=== PATIENT | female | born 1990 | race Caucasian/White ===

== ENCOUNTER → 2019-07-20 10:15 | Outpatient (CLI) | payer BC, OTHER, MEDICAID, SELFPAY ==
[2019-07-20 11:11] LABS: Add Manual Diff / Slide Review NO; Basophils Absolute Auto 0 /uL (0-100); Basophils Percent Auto 0.5 % (0-2); Eosinophils Absolute Auto 100 /uL (0-450); Eosinophils Percent Auto 1.3 % (2-4); Hematocrit 42.1 % (36-46); Hemoglobin 14.2 g/dL (12.0-16.0); Lymphocytes Absolute Auto 2300 /uL (1100-4500); Mean Corpuscular HGB Conc 33.8 % (30-36); Mean Corpuscular Hemoglobin 29.4 PG (26-34); Mean Corpuscular Volume 86.9 fL (80-100); Monocytes Absolute Auto 600 /uL (0-900); Neutrophils Absolute Auto 4400 /uL (1500-7000); Neutrophils Percent Auto 59.2 % (50-75); Platelet Count 284 X10^3/uL (150-400); Red Blood Cell Count 4.84 X10^6/uL (4.0-5.2); Red Cell Distribution Width 13.2 % (11.6-14.8); White Blood Cell Count 7.5 X10^3/uL (4.5-11.0)
[2019-07-20 11:23] LABS: Alanine Aminotransferase 17 IU/L (<35); Alkaline Phosphatase 77 U/L (38-126); Aspartate Aminotransferase 28 IU/L (14-36); BUN Creatinine Ratio 25.6 (6-22); Bilirubin Total 0.2 mg/dL (0.2-1.3); Blood Urea Nitrogen 21 mg/dL (7-17); Calcium 9.5 mg/dL (8.4-10.2); Carbon Dioxide 18 mmol/L (22-32); Chloride 111 mmol/L (98-107); Estimated Glomerular Filt Rate > 60.0 mL/min (>60); Globulin 3.9 g/dL (1.7-4.1); Glucose 73 mg/dL (70-100); HEMOLYSIS < 15 (0-50); Potassium 4.1 mmol/L (3.4-5.1); Sodium 138 mmol/L (137-145); Total Protein 7.9 g/dL (6.3-8.2)
[2019-07-20 12:10] LABS: Luteinizing Hormone < 0.22 mIU/mL
[2019-07-20 12:25] LABS: Thyroid Stimulating Hormone 2.09 uIU/mL (0.47-4.68)
[2019-07-20 12:27] LABS: Follicle Stimulating Hormone < 0.66 mIU/mL
[2019-07-23 05:12] LABS: Topiramate 4.6 ug/mL (2.0-25.0)
== END ==
PROVIDERS: PCP Family Medicine; Referring Provider Family Medicine; Visit Provider Family Medicine
DX: G40.309 Generalized idiopathic epilepsy and epileptic syndromes, not intractable, without status epilepticus (principal); R53.83 Other fatigue
CPT/HCPCS: 36415; 80053; 80201; 82533; 83001; 83002; 84443; 85025; 88230; 88262; 88289

== ENCOUNTER → 2019-09-10 09:22 | Outpatient (CLI) | payer BC, OTHER, MEDICAID, SELFPAY ==
[2019-09-10 10:57] LABS: Alanine Aminotransferase 18 IU/L (<35); Albumin 4.2 g/dL (3.5-5.0); Albumin Globulin Ratio 1.2 (1.0-2.8); Alkaline Phosphatase 62 U/L (38-126); Amylase 141 U/L (30-110); Aspartate Aminotransferase 36 IU/L (14-36); BUN Creatinine Ratio 26.3 (6-22); Bilirubin Total 0.2 mg/dL (0.2-1.3); Blood Urea Nitrogen 20 mg/dL (7-17); Calcium 9.6 mg/dL (8.4-10.2); Carbon Dioxide 21 mmol/L (22-32); Chloride 109 mmol/L (98-107); Estimated Glomerular Filt Rate > 60.0 mL/min (>60); Globulin 3.6 g/dL (1.7-4.1); Glucose 83 mg/dL (70-100); HEMOLYSIS 22 (0-50); Lipase 220 U/L (23-300); Potassium 4.3 mmol/L (3.4-5.1); Sodium 137 mmol/L (137-145); Total Protein 7.8 g/dL (6.3-8.2)
[2019-09-22 16:35] LABS: C10 0.07 umol/L (0.00-0.38); C10:1 0.04 umol/L (0.01-0.32); C10:2 0.01 umol/L (0.00-0.05); C12 0.02 umol/L (0.00-0.15); C14 0.02 umol/L (0.00-0.06); C14:1 0.02 umol/L (0.00-0.17); C14:2 0.01 umol/L (0.00-0.11); C16 0.06 umol/L (0.03-0.13); C16:1 0.01 umol/L (0.00-0.04); C18 0.02 umol/L (0.00-0.07); C18:1 0.05 umol/L (0.04-0.17); C18:2 0.02 umol/L (0.00-0.11); C2 3.87 umol/L (3.23-10.29); C3 0.54 umol/L (0.16-0.62); C3-DICARBOXYLIC 0.03 umol/L (0.02-0.12); C4 0.26 umol/L (0.08-0.32); C5 0.12 umol/L (0.01-0.21); C5 Hydroxy 0.04 umol/L (0.00-0.06); C5- Dicarboxylic 0.04 umol/L (0.00-0.10); C5:1 0.01 umol/L (0.00-0.02); C6 0.02 umol/L (0.00-0.10); C8 0.05 umol/L (0.00-0.27)
== END ==
PROVIDERS: PCP Family Medicine; Referring Provider Family Medicine; Visit Provider Family Medicine
DX: R19.4 Change in bowel habit (principal); G40.309 Generalized idiopathic epilepsy and epileptic syndromes, not intractable, without status epilepticus
CPT/HCPCS: 36415; 80053; 82017; 82139; 82150; 83690; 83919

== ENCOUNTER → 2019-11-10 08:14 | Outpatient (CLI) | payer OTHER, MEDICAID, SELFPAY ==
--- NOTE | 2019-11-10 | DI.US.S_ITS ---
PROCEDURE: US ABDOMEN COMPLETE INDICATIONS: CHANGE IN BOWEL HABIT TECHNIQUE: Real-time scanning was performed of the abdominal and retroperitoneal organs, with image documentation. COMPARISON: None. FINDINGS: Evaluation is limited, secondary to the patient's inability to fully cooperate with the examination. Liver: Liver is normal in size. Within the right lobe of the liver, there is an echogenic lesion seen that measures 2.7 x 1.9 x 2.2 cm. Gallbladder: The gallbladder is overall not well seen. No findings of gallstones or sludge are seen. The gallbladder wall is not thickened, measuring 3 mm or less. No specific pericholecystic fluid is seen. The sonographic Jackson sign is negative. Biliary ducts: Intrahepatic bile ducts are non-dilated. Extrahepatic bile duct caliber measures 4 mm. Normal is 6-7 mm or less in diameter, or 10 mm or less post-cholecystectomy. Pancreas: Visualized portions of the pancreas are sonographically normal. Spleen: Spleen is normal in size and homogeneous in echotexture. Kidneys: Kidneys are normal in size and echotexture. Right kidney measures 11.4 cm long; left kidney measures 11 cm long. No hydronephrosis or nephrolithiasis. No solid masses. Aorta: Visualized aorta is normal in caliber at less than 3 cm. Iliacs: Not seen, obscured by overlying bowel gas. IVC: Intrahepatic inferior vena cava is patent. Miscellaneous: No free abdominal fluid. IMPRESSION: Limited study demonstrating no imaging explanation for the patient's presenting symptoms. Likely 2.7 cm liver hemangioma. Attention should be paid to this area on any future followup studies. If there is strong clinical concern for a clinically relevant liver mass, then please consider a liver protocol MRI (without and with contrast) for further evaluation (assuming that there is no contraindication). Dictated by: Karlos Carr M.D. on 11/10/2019 at 8:20 Approved by: Karlos Carr M.D. on 11/10/2019 at 8:22
== END ==
PROVIDERS: PCP Family Medicine; Referring Provider Family Medicine; Visit Provider Family Medicine
DX: R19.4 Change in bowel habit (principal); K76.9 Liver disease, unspecified
CPT/HCPCS: 76700

== ENCOUNTER → 2020-01-05 07:31 | Outpatient (CLI) | payer OTHER, MEDICAID, SELFPAY ==
[2020-01-05 08:39] LABS: Alanine Aminotransferase 38 IU/L (<35); Albumin Globulin Ratio 1.2 (1.0-2.8); Alkaline Phosphatase 75 U/L (38-126); Amylase 72 U/L (30-110); Aspartate Aminotransferase 51 IU/L (14-36); BUN Creatinine Ratio 21.7 (6-22); Bilirubin Total 0.3 mg/dL (0.2-1.3); Blood Urea Nitrogen 18 mg/dL (7-17); Calcium 9.3 mg/dL (8.4-10.2); Carbon Dioxide 22 mmol/L (22-32); Chloride 107 mmol/L (98-107); Estimated Glomerular Filt Rate > 60.0 mL/min (>60); Globulin 3.4 g/dL (1.7-4.1); Glucose 79 mg/dL (70-100); HEMOLYSIS < 15 (0-50); Lipase 166 U/L (23-300); Potassium 4.1 mmol/L (3.4-5.1); Sodium 136 mmol/L (137-145); Total Protein 7.4 g/dL (6.3-8.2)
[2020-01-10 12:39] LABS: Topiramate 10.8 ug/mL (2.0-25.0)
[2020-01-26 06:41] LABS: Methodology LC-MS/MS
== END ==
PROVIDERS: PCP Family Medicine; Referring Provider Family Medicine; Visit Provider Family Medicine
DX: D18.00 Hemangioma unspecified site (principal); R53.83 Other fatigue; Q04.5 Megalencephaly; F89 Unspecified disorder of psychological development
CPT/HCPCS: 36415; 80053; 80201; 82139; 82150; 83690

== ENCOUNTER → 2020-01-26 07:39 | Outpatient (CLI) | payer OTHER, MEDICAID, SELFPAY ==
--- NOTE | 2020-01-26 | DI.US.S_ITS ---
PROCEDURE: US PERIPH VENOUS LOW EXTREM LT INDICATIONS: CALF SWELLING TECHNIQUE: Real-time imaging, as well as color and pulse Doppler interrogation, were performed of the left lower extremity deep veins from the inguinal ligament to the popliteal fossa. COMPARISON: None. FINDINGS: The common femoral, femoral and popliteal veins are normally compressible, and free of intraluminal thrombus. Color and pulse Doppler demonstrate normal phasic intraluminal flow. There is normal augmentation response to distal compression maneuver. IMPRESSION: No evidence of deep vein thrombosis involving the left lower extremity. Dictated by: Isis Johnson MD, PhD on 01/26/2020 at 9:05 Approved by: Isis Johnson MD, PhD on 01/26/2020 at 9:05
== END ==
PROVIDERS: PCP Family Medicine; Referring Provider Family Medicine; Visit Provider Family Medicine
DX: R22.42 Localized swelling, mass and lump, left lower limb (principal)
CPT/HCPCS: 93971

== ENCOUNTER → 2020-07-24 07:12 | Outpatient (CLI) | payer OTHER, MEDICAID, SELFPAY ==
--- NOTE | 2020-07-24 | DI.US.S_ITS ---
PROCEDURE: US ABDOMEN COMPLETE INDICATIONS: RE-EVALUATE HEMANGIOMA TECHNIQUE: Real-time scanning was performed of the abdominal and retroperitoneal organs, with image documentation. COMPARISON: [facility], US, US ABDOMEN COMPLETE, 11/10/2019, 8:40. FINDINGS: Liver: Liver is normal in size. An echogenic focus is again seen within the anterior right lobe of the liver measuring 2.2 x 1.9 x 1.5 cm. Previously, this measured 2.7 x 1.9 x 2.2 cm. Gallbladder: No findings of gallstones or sludge are seen. The gallbladder wall is not thickened, measuring 3 mm or less. No specific pericholecystic fluid is seen. The sonographic Jackson sign is negative. Biliary ducts: Intrahepatic bile ducts are non-dilated. Extrahepatic bile duct caliber measures 5 mm. Normal is 6-7 mm or less in diameter, or 10 mm or less post-cholecystectomy. Pancreas: Visualized portions of the pancreas are sonographically normal. Spleen: Spleen is normal in size and homogeneous in echotexture. Kidneys: Kidneys are normal in size and echotexture. Right kidney measures 11.5 cm long; left kidney measures 12.7 cm long. No hydronephrosis or nephrolithiasis. No solid masses. The renal cortex measures within normal limits for thickness. Aorta: Visualized aorta is normal in caliber at less than 3 cm. Iliacs: Proximal common iliac arteries are normal in caliber at less than 2.5 cm. IVC: Intrahepatic inferior vena cava is patent. Miscellaneous: No free abdominal fluid. IMPRESSION: There is again seen a presumed liver hemangioma, which is not increased in size compared to the prior. Dictated by: Karlos Carr M.D. on 07/24/2020 at 9:40 Approved by: Karlos Carr M.D. on 07/24/2020 at 9:41
[2020-07-24 08:53] LABS: Alanine Aminotransferase 18 IU/L (<35); Albumin 3.7 g/dL (3.5-5.0); Albumin Globulin Ratio 1.1 (1.0-2.8); Alkaline Phosphatase 65 U/L (38-126); Aspartate Aminotransferase 28 IU/L (14-36); BUN Creatinine Ratio 24.3 (6-22); Bilirubin Total 0.2 mg/dL (0.2-1.3); Blood Urea Nitrogen 18 mg/dL (7-17); Calcium 9.1 mg/dL (8.4-10.2); Carbon Dioxide 21 mmol/L (22-32); Chloride 110 mmol/L (98-107); Cholesterol 170 mg/dL (140-199); Estimated Glomerular Filt Rate > 60.0 mL/min (>60); Globulin 3.3 g/dL (1.7-4.1); Glucose 86 mg/dL (70-100); HDL Cholesterol 43 mg/dL (40-60); HEMOLYSIS < 15 (0-50); LDL Cholesterol Calculated 103 mg/dL (<100); Potassium 3.8 mmol/L (3.4-5.1); Sodium 138 mmol/L (137-145); Triglycerides 121 mg/dL (35-150)
[2020-07-24 09:02] LABS: Add Manual Diff / Slide Review NO; Basophils Absolute Auto 0 /uL (0-100); Basophils Percent Auto 0.3 % (0-2); Eosinophils Absolute Auto 100 /uL (0-450); Eosinophils Percent Auto 1.1 % (2-4); Hematocrit 41.6 % (36-46); Hemoglobin 13.5 g/dL (12.0-16.0); Lymphocytes Absolute Auto 2400 /uL (1100-4500); Lymphocytes Percent Auto 32.7 % (25-40); Mean Corpuscular HGB Conc 32.5 % (30-36); Mean Corpuscular Hemoglobin 28.7 PG (26-34); Mean Corpuscular Volume 88.3 fL (80-100); Monocytes Absolute Auto 500 /uL (0-900); Monocytes Percent Auto 6.7 % (3-14); Neutrophils Absolute Auto 4400 /uL (1500-7000); Neutrophils Percent Auto 59.2 % (50-75); Platelet Count 240 X10^3/uL (150-400); Red Blood Cell Count 4.71 X10^6/uL (4.0-5.2); Red Cell Distribution Width 13.5 % (11.6-14.8); White Blood Cell Count 7.4 X10^3/uL (4.5-11.0)
== END ==
PROVIDERS: PCP Student in an Organized Health Care Education/Training Program; Referring Provider Student in an Organized Health Care Education/Training Program; Visit Provider Student in an Organized Health Care Education/Training Program
DX: D18.00 Hemangioma unspecified site (principal)
CPT/HCPCS: 36415; 76700; 80053; 80061; 85025

== ENCOUNTER → 2020-07-28 08:39 | Outpatient (CLI) | payer OTHER, MEDICAID, SELFPAY ==
[2020-07-28] MEDS: COVID-19 VACC #1, MRNA(MOD) 100 MCG/0.5 ML VIAL IM (08:53)
== END ==
PROVIDERS: PCP Student in an Organized Health Care Education/Training Program; Visit Provider Internal Medicine
DX: Z23 Encounter for immunization (principal)
CPT/HCPCS: 0011A; 91301

== ENCOUNTER → 2020-08-25 09:10 | Outpatient (CLI) | payer OTHER, MEDICAID, SELFPAY ==
[2020-08-25] MEDS: COVID-19 VACC #2, MRNA(MOD) 100 MCG/0.5 ML VIAL IM (09:19)
== END ==
PROVIDERS: PCP Student in an Organized Health Care Education/Training Program; Visit Provider Internal Medicine
DX: Z23 Encounter for immunization (principal)
CPT/HCPCS: 0012A; 91301

== ENCOUNTER → 2021-02-19 07:53 | Outpatient (CLI) | payer OTHER, MEDICAID, SELFPAY ==
[2021-02-19 10:48] LABS: Alanine Aminotransferase 16 IU/L (<35); Albumin Globulin Ratio 1.3 (1.0-2.8); Alkaline Phosphatase 63 U/L (38-126); Aspartate Aminotransferase 28 IU/L (14-36); Bilirubin Total 0.2 mg/dL (0.2-1.3); Bilirubin Unconjugated 0.1 mg/dL (0.0-1.1); HEMOLYSIS < 15 (0-50)
[2021-02-20 02:34] LABS: Alpha Fetoprotein 1.1 ng/mL (0.0-8.3)
== END ==
PROVIDERS: PCP Student in an Organized Health Care Education/Training Program; Referring Provider Internal Medicine Gastroenterology; Visit Provider Internal Medicine Gastroenterology
DX: R19.5 Other fecal abnormalities (principal); D18.03 Hemangioma of intra-abdominal structures
CPT/HCPCS: 36415; 80076; 82105

== ENCOUNTER → 2021-05-02 09:01 | Outpatient (CLI) | payer OTHER, MEDICAID, SELFPAY ==
[2021-05-02 10:08] LABS: Add Manual Diff / Slide Review NO; Basophils Absolute Auto 100 /uL (0-100); Basophils Percent Auto 0.8 % (0-2); Eosinophils Absolute Auto 0 /uL (0-450); Eosinophils Percent Auto 0.5 % (2-4); Hematocrit 40.3 % (36-46); Hemoglobin 13.6 g/dL (12.0-16.0); Lymphocytes Absolute Auto 1800 /uL (1100-4500); Lymphocytes Percent Auto 24.3 % (25-40); Mean Corpuscular HGB Conc 33.7 % (30-36); Mean Corpuscular Hemoglobin 29.1 PG (26-34); Mean Corpuscular Volume 86.5 fL (80-100); Monocytes Absolute Auto 400 /uL (0-900); Monocytes Percent Auto 4.9 % (3-14); Neutrophils Absolute Auto 5000 /uL (1500-7000); Neutrophils Percent Auto 69.5 % (50-75); Platelet Count 254 X10^3/uL (150-400); Red Blood Cell Count 4.65 X10^6/uL (4.0-5.2); White Blood Cell Count 7.2 X10^3/uL (4.5-11.0)
[2021-05-02 11:33] LABS: TSH w/ Reflex to FT4 1.98 uIU/mL (0.47-4.68)
[2021-05-02 11:54] LABS: Vitamin B12 457 pg/mL (239-931)
[2021-05-02 13:23] LABS: Free T4, Direct Thyroxine 0.85 ng/dL (0.78-2.19)
[2021-05-04 12:05] LABS: Lamotrigine Lamictal 2.6 ug/mL (2.0-20.0)
== END ==
PROVIDERS: PCP Student in an Organized Health Care Education/Training Program; Referring Provider Psychiatry & Neurology Neurology; Visit Provider Psychiatry & Neurology Neurology
DX: G40.309 Generalized idiopathic epilepsy and epileptic syndromes, not intractable, without status epilepticus (principal); Z79.899 Other long term (current) drug therapy
CPT/HCPCS: 36415; 80175; 82607; 84439; 84443; 85025

== ENCOUNTER 2021-09-24 14:06 | Emergency (ER) | payer OTHER, MEDICAID, SELFPAY ==
[2021-09-24 14:33] VITALS: PULSE 114; RESP 22; O2SAT 99
--- NOTE | 2021-09-24 16:58 | DI.RAD.S_ITS ---
PROCEDURE: XR KNEE LT 1TO2V INDICATIONS: leg pain TECHNIQUE: Two views of the knee were acquired. COMPARISON: None. FINDINGS: Bones: No fractures or dislocations. No suspicious bony lesions. Soft tissues: No joint effusion. No suspicious soft tissue calcifications. IMPRESSION: Normal left knee Dictated by: Carlos Bassett M.D. on 09/24/2021 at 17:32 Approved by: Carlos Bassett M.D. on 09/24/2021 at 17:33
--- NOTE | 2021-09-24 16:58 | DI.RAD.S_ITS ---
PROCEDURE: XR HIP W PEL IF DONE LT 2V INDICATIONS: leg pain TECHNIQUE: AP pelvis with lateral view(s) of the left hip(s). COMPARISON: None. FINDINGS: Bones: No fractures or dislocations. Pelvic ring appears intact. No suspicious bony lesions. Soft tissues: The visualized bowel gas pattern is normal. No suspicious soft tissue calcifications. IMPRESSION: Normal pelvis and left hip Dictated by: Carlos Bassett M.D. on 09/24/2021 at 17:31 Approved by: Carlos Bassett M.D. on 09/24/2021 at 17:32
--- NOTE | 2021-09-24 16:58 | DI.RAD.S_ITS ---
PROCEDURE: XR ANKLE LT MIN 3V INDICATIONS: leg pain TECHNIQUE: 3 views of the ankle were acquired. COMPARISON: None. FINDINGS: Bones: No fractures or dislocations. Ankle mortise is normally aligned. No suspicious bony lesions. Soft tissues: No tibiotalar joint effusion. Achilles tendon appears normal. IMPRESSION: Normal left ankle Dictated by: Carlos Bassett M.D. on 09/24/2021 at 17:28 Approved by: Carlos Bassett M.D. on 09/24/2021 at 17:30
--- NOTE | 2021-09-24 17:00 | ED_ITS ---
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 Patient is normally minimally verbal she is usually quite active and ambulates regularly and mom noted today that she seems to be moving l ess, she seems like she either does not want to or is having difficulty getting up out of a chair and when she ambulates her left leg seems almost weak or shaking. She states that it has been sort of intermittent throughout the day and she has even been walking and ambulating at times although not as quickly at other times normally. No fevers or chills. Patient has not expressed pain clearly to her. She has not had any vomiting. No difficulty with breathing, cough, cold or congestion. She has had normal bowel movements and urination with no dysuria. She sometimes uses the toilet but wears pull-ups also. Mom has not noticed any new swelling or skin changes. She has chronic swelling in her left leg and has had US of her leg several years ago which was negative when it started. Patient is on medication for seizure disorder including Topamax and lamotrigine, fluovaxamine. She takes lorazepam twice daily. She has not had similar issues like this in the past. No recent falls or injuries that she is aware. Related Data Home Medications Medication Instructions Recorded Confirmed aripiprazole 2 mg tablet 2 mg PO DAILY 09/24/21 09/24/21 fluvoxamine 25 mg tablet 50 mg PO BID 09/24/21 09/24/21 lorazepam 1 mg tablet 0.5 mg PO BID 09/24/21 09/24/21 norgestrel 0.3 mg-ethinyl 1 tab PO DAILY 09/24/21 09/24/21 estradiol 30 mcg tablet (Susana (28)) topiramate 50 mg tablet 50 mg PO BID 09/24/21 09/24/21 Previous Rx's Medication Instructions Recorded apixaban 5 mg tablet (Eliquis) 5 mg PO BID #90 tab 09/24/21 Allergies Allergy/AdvReac Type Severity Reaction Status Date / Time Sulfa (Sulfonamide Allergy Verified 09/24/21 18:58 Antibiotics) Review of Systems <Sindhu Ochoa DO - Last Filed: 09/25/21 11:26> Review of Systems ROS Unobtainable: Unobtainable due to mental condition Exam <Sindhu Ochoa DO - Last Filed: 09/25/21 11:26> Narrative Exam Narrative: GEN: well nourished, well appearing female, alert and oriented to baseline, patient appears to be in mild distress. Patient interact verbally but minimally with myself. HEENT: Atraumatic, pupils are equal round reactive to light, extraocular movements are intact, nares are clear, moist mucous membranes. HEART: Regular rate and rhythm without murmur, clicks, rubs. Pulses are equal in upper and lower extremities LUNGS:Lungs clear to auscultation, no wheezes, rales, crackles, chest moves symmetrically ABD:bowel sounds normal, soft, non-tender, no guarding, rebound, rigidity, no masses noted, no hepatosplenomegaly, negative pelvic rock. :No CVA tenderness BACK: No cervical, thoracic or lumbar vertebral point tenderness. Patient has normal range of motion passively. Patient will attempt to stand but appears to be uncomfortable when she puts weight on the left leg. Muscle strength is in lower extremities, patient is able of lift both both legs independently when I evaluate her feet. Dorsalis pedis and tibialis pulses are 2+ and lower extremities. Sensation is intact in the lower extremities. MSCL: Non-tender to palpation of leg, no bony tenderness, fully visualized with no skin changes, no muscle atrophy, patient has no pain with passive range of motion, she does not follow commands to evaluate range of motion. NEURO:CN 2-12 intact, sensation normal SKIN: Patient has some mild hyper pigmentation on buttocks and legs which mom states is consistent with her history of genetic mosaicism. Initial Vital Signs Initial Vital Signs: Vital Signs Pulse Rate 114 H 09/24/21 14:33 Respiratory Rate 22 09/24/21 14:33 Pulse Oximetry 99 09/24/21 14:33 <Lia Mauro MD - Last Filed: 09/25/21 06:17> Initial Vital Signs Initial Vital Signs: Vital Signs Pulse Rate 114 H 09/24/21 14:33 Respiratory Rate 22 09/24/21 14:33 Pulse Oximetry 99 09/24/21 14:33 Course <Sindhu Ochoa DO - Last Filed: 09/25/21 11:26> Orders Ordered: Discontinued Medications Acetaminophen (Acetaminophen 325 Mg Tablet) 650 mg PO NOW ONE Stop: 09/24/21 16:59 Last Admin: 09/24/21 17:11 Dose: 650 mg Documented by: ELHAM Apixaban (Apixaban 5 Mg Tablet) 5 mg PO NOW ONE Stop: 09/24/21 20:07 Last Admin: 09/24/21 20:18 Dose: 5 mg Documented by: LUIS Reevaluation(s) Reevaluation #1: Repeat evaluation. Patient's x-ray imaging was negative. Unable to reproduce her discomfort on examination 2nd time and with straight leg raise. Mom discussed that there was concern about DVT in the past, she has a chronically swollen left leg so DVT ultrasound was ordered. Offered to do additional testing with labs or further imaging but mother defers at this time. Time: 17:59 Vital Signs Vital signs: Vital Signs - 8 hr 09/24/21 14:33 Pulse Rate 114 H Respiratory Rate 22 Pulse Oximetry 99 <Lia Mauro MD - Last Filed: 09/25/21 06:17> Orders Ordered: Discontinued Medications Acetaminophen (Acetaminophen 325 Mg Tablet) 650 mg PO NOW ONE Stop: 09/24/21 16:59 Last Admin: 09/24/21 17:11 Dose: 650 mg Documented by: ELHAM Apixaban (Apixaban 5 Mg Tablet) 5 mg PO NOW ONE Stop: 09/24/21 20:07 Last Admin: 09/24/21 20:18 Dose: 5 mg Documented by: LUIS Vital Signs Vital signs: Vital Signs - 8 hr 09/24/21 14:33 Pulse Rate 114 H Respiratory Rate 22 Pulse Oximetry 99 MDM - Extremity (Nontraumatic) <Sindhu Ochoa DO - Last Filed: 09/25/21 11:26> Imaging Data Extremity x-ray #1: Radiologist's Impression: [address] [address]FLxg ReportSigned Patient: Giuliano Prasad [facility]#: [id number]: 1990Acct:[id number]/Sex: 30 / FDate of Service: 09/24/21Loc: EDAccession Number: [id number]? ? Procedure: XR ankle LT min 3V Ordering Provider: Sindhu Ochoa D.O. PROCEDURE:? XR ANKLE LT MIN 3V ? INDICATIONS:? leg pain ? TECHNIQUE:? 3 views of the ankle were acquired.? ? COMPARISON:? None. ? FINDINGS:? ? Bones:? No fractures or dislocations.? Ankle mortise is normally aligned.? No s uspicious bony lesions.? ? Soft tissues:? No tibiotalar joint effusion.? Achilles tendon appears normal.? ? ? IMPRESSION:? Normal left ankle ? Dictated by: Carlos Bassett M.D. on 09/24/2021 at 17:28? ?? Approved by: Carlos Bassett M.D. on 09/24/2021 at 17:30?? Extremity x-ray #2: Radiologist's Impression: [place] [address] XRay Report Signed Patient: Giuliano Prasad MR#: [id number] : 1990 Acct:[id number] Age/Sex: 30 / F Date of Service: 09/24/21 Loc: ED Accession Number: [id number] ?? Procedure: XR hip w pel if done LT 2V Ordering Provider: Sindhu Ochoa D.O. PROCEDURE:? XR HIP W PEL IF DONE LT 2V ? INDICATIONS:? leg pain ? TECHNIQUE:? AP pelvis with lateral view(s) of the left hip(s).? ? COMPARISON:? None. ? FINDINGS:? ? Bones:? No fractures or dislocations.? Pelvic ring appears intact.? No suspicious bony lesions.? ? Soft tissues:? The visualized bowel gas pattern is normal.? No suspicious soft tissue calcifications.? ? ? IMPRESSION:? Normal pelvis and left hip ? Dictated by: Carlos Bassett M.D. on 09/24/2021 at 17:31 ? ? Approved by: Carlos Bassett M.D. on 09/24/2021 at 17:32?? Extremity x-ray #3: Radiologist's Impression: [address] [address] XRay Report Signed Patient: Giuliano Prasad MR#: [id number] : 1990 Acct:[id number] Age/Sex: 30 / F Date of Service: 09/24/21 Loc: ED Accession Number: [id number] ?? Procedure: XR knee LT 1to2V Ordering Provider: Sindhu Ochoa D.O. PROCEDURE:? XR KNEE LT 1TO2V ? INDICATIONS:? leg pain ? TECHNIQUE:? Two views of the knee were acquired.? ? COMPARISON:? None. ? FINDINGS:? ? Bones:? No fractures or dislocations.? No suspicious bony lesions.? ? Soft tissues:? No joint effusion.? No suspicious soft tissue calcifications.? ? ? IMPRESSION:? Normal left knee ? ? Dictated by: Carlos Bassett M.D. on 09/24/2021 at 17:32 ? ? Approved by: Carlos Bassett M.D. on 09/24/2021 at 17:33?? MDM Narrative Medical decision making narrative: Patient signed out to Dr. Mauro while awaiting US for DVT. Patient has significant developmental delay but appears to not be ambulating normally and on examination she does appear have some difficulty standing and seems to be her left leg is giving her discomfort. Her physical exam otherwise is benign unable to reproduce the pain and of not find any obvious physical changes that would cause this. Patient was undressed completely. Imaging was obtained of hip, knee and ankle which do not show any fracture or injury. Patient has been walking intermittently. Mom notes that she feels patient has had a swollen left leg for the past 5 years, she has remotely had ultrasound for DVT rule out which was negative at that time. Ultrasound was obtained again but is currently pending. Patient's exam does not suggest any other processes such is acute intra-abdominal, infectious, no lacerations or lesions are noted, patient appears to only have pain with attempting to stand and ambulate. 7:50pm care is excepted from Dr. Ochoa. 30-year-old woman with significant developmental delay who is having pain behaviors indicating that her left leg is tender. Physical exam is relatively benign but is also somewhat difficult given her developmental delay. X-rays are unremarkable and ultrasound shows a thrombus of the greater saphenous vein that is approximately 14 cm in length. While this is a superficial vessel, recommendations are 45 days of prophylactic anticoagulation in the setting of a clot longer than 5 cm. Reviewed this recommendation with Giuliano as mother who is amenable. Will begin apixaban/Eliquis 5 mg b.i.d. with anticipation of 45 day course. Will ask her to follow-up with her primary doctor within 1-2 weeks. Tylenol has been effective in controlling her pain and will have her continue that is needed. Her mom notes that she has no difficulty taking medications. Findings are reviewed with her mother. Her mom is wondering if this is why her left leg has seemingly been more swollen than the right leg for the last 2 year. Given the acuity of the pain symptoms I suspect that the superficial clot is unrelated to the 2 years of swelling. Findings reviewed, questions are answered and patient is safe for home discharge. Of note she is able to get up off the bed and walk about the room without any pain behaviors at all just prior to discharge. <Lia Mauro MD - Last Filed: 09/25/21 06:17> Imaging Data US - DVT: Radiologist's Impression: FINDINGS:? The common femoral, femoral and popliteal veins are normally compressible, and free of intraluminal thrombus.? The greater saphenous vein contains thrombus from the mid through distal thigh approximately 14 cm in length.? Color and pulse Doppler demonstrate normal phasic intraluminal flow.? There is normal augmentation response to distal compression maneuver.? ? IMPRESSION:? 1. No deep vein thrombosis. 2. Thrombus of the greater saphenous vein.? ? ? Dictated by: Carlos Bassett M.D. on 09/24/2021 at 19:06 ? ? [facility] Narrative Medical decision making narrative: 7:50pm care is excepted from Dr. Ochoa. 30-year-old woman with significant developmental delay who is having pain behaviors indicating that her left leg is tender. Physical exam is relatively benign but is also somewhat difficult given her developmental delay. X-rays are unremarkable and ultrasound shows a thrombus of the greater saphenous vein that is approximately 14 cm in length. While this is a superficial vessel, recommendations are 45 days of prophylactic anticoagulation in the setting of a clot longer than 5 cm. Reviewed this r ecommendation with Giuliano as mother who is amenable. Will begin apixaban/Eliquis 5 mg b.i.d. with anticipation of 45 day course. Will ask her to follow-up with her primary doctor within 1-2 weeks. Tylenol has been effective in controlling her pain and will have her continue that is needed. Her mom notes that she has no difficulty taking medications. Findings are reviewed with her mother. Her mom is wondering if this is why her left leg has seemingly been more swollen than the right leg for the last 2 year. Given the acuity of the pain symptoms I suspect that the superficial clot is unrelated to the 2 years of swelling. Findings reviewed, questions are answered and patient is safe for home discharge. Of note she is able to get up off the bed and walk about the room without any pain behaviors at all just prior to discharge. Discharge Plan Departure Patient Disposition: Home Clinical Impression: Superficial thrombophlebitis Activity Restrictions/Additional Instructions: Thank you for coming in today Giuliano does NOT have a deep venous thrombosis. She does have a superficial venous thrombosis. This is what is causing her pain. Given that the pain is only been recent I suspect that this superficial blood clot does not explain the swelling that she has had in that leg for the last 2 years. The clot itself is described as 14 cm in length by the radiologist and the recommendations are to treat superficial blood clots with 45 days of anticoagulation if they are longer than 5 cm. I am going to put Giuliano on Eliquis/apixaban, 5 mg twice a day for 45 days. A prescription for this was transmitted to [facility] I did do a drug interaction check including Eliquis, lamotrigine, aripiprazole, topiramate, fluvoxamine, cryselle and lorazepam. This is a safe addition at the standard dose. In reviewing her medications, estrogen can be an explanation for blood clots. I would recommend that she stop the control pill with estrogen/cryselle until you have had a chance to further discuss this with her primary care doctor. I would encourage you to schedule appointment with her primary care doctor (or 1 of her partners) within the next 2-3 weeks. Tylenol can be helpful for pain control. If Giuliano tolerates a heating pad, this may also be helpful to. It is okay and encouraged to be up and moving around as she usually does. If you have any additional worries or concerns or she develops new symptoms, please feel free to return to the emergency department Prescriptions: New Eliquis 5 mg tablet 5 mg PO BID Qty: 90 0RF Rx Instructions: discontinue after 45 days No Action Cryselle (28) 0.3-30 mg-mcg tablet 1 tab PO DAILY 0RF fluvoxamine 25 mg tablet 50 mg PO BID 0RF Rx Instructions: 50mg AM, 75mg PM lorazepam 1 mg tablet 0.5 mg PO BID 0RF topiramate 50 mg tablet 50 mg PO BID 0RF aripiprazole 2 mg tablet 2 mg PO DAILY 0RF Referrals: Lucille Scott MD [Primary Care Provider] -
[2021-09-24] MEDS: ACETAMINOPHEN 325 MG TABLET 650 MG PO (17:11)
--- NOTE | 2021-09-24 17:56 | DI.US.S_ITS ---
PROCEDURE: [facility] VENOUS LOW EXTREM LT INDICATIONS: LEFT LEG PAIN TECHNIQUE: Real-time imaging, as well as color and pulse Doppler interrogation, were performed of the lower extremity deep veins from the inguinal ligament to the popliteal fossa. COMPARISON: [facility], [facility] VENOUS LOW EXTREM LT, 01/26/2020, 8:12. FINDINGS: The common femoral, femoral and popliteal veins are normally compressible, and free of intraluminal thrombus. The greater saphenous vein contains thrombus from the mid through distal thigh approximately 14 cm in length. Color and pulse Doppler demonstrate normal phasic intraluminal flow. There is normal augmentation response to distal compression maneuver. IMPRESSION: 1. No deep vein thrombosis. 2. Thrombus of the greater saphenous vein. Dictated by: Carlos Bassett M.D. on 09/24/2021 at 19:06 Approved by: Carlos Bassett M.D. on 09/24/2021 at 19:10
[2021-09-24 20:02] VITALS: PULSE 83; RESP 16; O2SAT 97
[2021-09-24] MEDS: APIXABAN 5 MG TABLET PO (20:18)
== END 2021-09-24 21:00 | disposition home or self-care (01) ==
PROVIDERS: Emergency Provider Emergency Medicine; PCP Student in an Organized Health Care Education/Training Program
DX: I80.02 Phlebitis and thrombophlebitis of superficial vessels of left lower extremity (principal); R62.50 Unspecified lack of expected normal physiological development in childhood
CPT/HCPCS: 73502; 73560; 73610; 93971; 99284

== ENCOUNTER → 2021-10-01 07:17 | Outpatient (CLI) | payer OTHER, MEDICAID, SELFPAY ==
--- NOTE | 2021-10-01 | DI.US.S_ITS ---
PROCEDURE: US ABDOMEN COMPLETE INDICATIONS: FOLLOW-UP HEMANGIOMA TECHNIQUE: Real-time scanning was performed of the abdominal and retroperitoneal organs, with image documentation. COMPARISON: [facility], US, US ABDOMEN COMPLETE, 11/10/2019, 8:40. [facility], US, US ABDOMEN COMPLETE, 07/24/2020, 7:33. FINDINGS: Liver: Liver is normal in size and homogeneous in echotexture. Anterior left lobe of the liver echogenic mass measuring 2.2 x 2.2 x 2.1 cm. (Previously 2.2 x 1.9 x 1.5 cm, and more remotely 2.7 x 2.2 x 1.9 cm on ultrasound 11/10/2019). Gallbladder: Nondilated. No stones or sludge. Normal gallbladder wall thickness. No pericholecystic fluid. Negative sonographic Jackson's sign. Biliary ducts: Intrahepatic bile ducts are non-dilated. Extrahepatic bile duct caliber measures 4 mm. Normal is 6-7 mm or less in diameter, or 10 mm or less post-cholecystectomy. Pancreas: Visualized portions of the pancreas are sonographically normal. Spleen: Spleen is normal in size and homogeneous in echotexture. Kidneys: Kidneys are normal in size and echotexture. Right kidney measures 10.7 cm long; left kidney measures 11.7 cm long. No hydronephrosis or nephrolithiasis. No solid masses. Aorta: Visualized aorta is normal in caliber at less than 3 cm. Iliacs: Not well seen. IVC: Intrahepatic inferior vena cava is patent. Miscellaneous: No free abdominal fluid. IMPRESSION: 1. Echogenic mass in the liver measuring 2.2 cm is not significantly changed in size compared to 2019. This is most consistent with a benign hemangioma. 2. No gallstones. Dictated by: Dangelo Minaya M.D. on 10/01/2021 at 8:39 Approved by: Dangelo Minaya M.D. on 10/01/2021 at 8:44
== END ==
PROVIDERS: PCP Student in an Organized Health Care Education/Training Program; Referring Provider Student in an Organized Health Care Education/Training Program; Visit Provider Student in an Organized Health Care Education/Training Program
DX: D18.09 Hemangioma of other sites (principal)
CPT/HCPCS: 76700

== ENCOUNTER → 2022-03-01 09:07 | Outpatient (CLI) | payer OTHER, MEDICAID, SELFPAY ==
[2022-03-01 10:52] LABS: Add Manual Diff / Slide Review NO; Basophils Absolute Auto 0 /uL (0-100); Basophils Percent Auto 0.4 % (0-2); Eosinophils Absolute Auto 100 /uL (0-450); Eosinophils Percent Auto 1.3 % (2-4); Hemoglobin 13.7 g/dL (12.0-16.0); Lymphocytes Absolute Auto 2500 /uL (1100-4500); Lymphocytes Percent Auto 30.6 % (25-40); Mean Corpuscular HGB Conc 33.5 % (30-36); Mean Corpuscular Hemoglobin 29.2 PG (26-34); Mean Corpuscular Volume 87.2 fL (80-100); Monocytes Absolute Auto 700 /uL (0-900); Monocytes Percent Auto 8.5 % (3-14); Neutrophils Absolute Auto 4800 /uL (1500-7000); Neutrophils Percent Auto 59.2 % (50-75); Platelet Count 276 X10^3/uL (150-400); Red Blood Cell Count 4.71 X10^6/uL (4.0-5.2); White Blood Cell Count 8.2 X10^3/uL (4.5-11.0)
[2022-03-01 11:13] LABS: Alanine Aminotransferase 33 IU/L (<35); Albumin 4.2 g/dL (3.5-5.0); Albumin Globulin Ratio 1.4 (1.0-2.8); Alkaline Phosphatase 91 U/L (38-126); Aspartate Aminotransferase 35 IU/L (14-36); BUN Creatinine Ratio 35.4 (6-22); Bilirubin Total 0.2 mg/dL (0.2-1.3); Blood Urea Nitrogen 23 mg/dL (7-17); Calcium 9.3 mg/dL (8.4-10.2); Carbon Dioxide 21 mmol/L (22-32); Chloride 105 mmol/L (98-107); Estimated Glomerular Filt Rate > 60 mL/min (>60); Glucose 76 mg/dL (70-100); HEMOLYSIS < 15 (0-50); Potassium 4.8 mmol/L (3.4-5.1); Sodium 139 mmol/L (137-145); Total Protein 7.2 g/dL (6.3-8.2)
[2022-03-01 11:41] LABS: TSH w/ Reflex to FT4 1.65 uIU/mL (0.47-4.68)
[2022-03-01 12:01] LABS: Vitamin B12 704 pg/mL (239-931)
[2022-03-04 10:08] LABS: Lamotrigine Lamictal 2.8 ug/mL (2.0-20.0)
== END ==
PROVIDERS: PCP Family Medicine; Referring Provider Psychiatry & Neurology Neurology; Visit Provider Psychiatry & Neurology Neurology
DX: G40.309 Generalized idiopathic epilepsy and epileptic syndromes, not intractable, without status epilepticus (principal); R46.89 Other symptoms and signs involving appearance and behavior
CPT/HCPCS: 36415; 80053; 80175; 82607; 84443; 85025

== ENCOUNTER → 2022-09-13 07:05 | Outpatient (CLI) | payer OTHER, MEDICAID, SELFPAY ==
[2022-09-13 08:29] LABS: Add Manual Diff / Slide Review NO; Basophils Absolute Auto 0 /uL (0-100); Basophils Percent Auto 0.5 % (0-2); Eosinophils Absolute Auto 100 /uL (0-450); Eosinophils Percent Auto 1.2 % (2-4); Hematocrit 42.6 % (36-46); Hemoglobin 14.2 g/dL (12.0-16.0); Lymphocytes Absolute Auto 2400 /uL (1100-4500); Lymphocytes Percent Auto 33.4 % (25-40); Mean Corpuscular HGB Conc 33.5 % (30-36); Mean Corpuscular Hemoglobin 29.3 PG (26-34); Mean Corpuscular Volume 87.5 fL (80-100); Monocytes Absolute Auto 400 /uL (0-900); Monocytes Percent Auto 5.9 % (3-14); Neutrophils Absolute Auto 4200 /uL (1500-7000); Platelet Count 244 X10^3/uL (150-400); Red Blood Cell Count 4.87 X10^6/uL (4.0-5.2); Red Cell Distribution Width 13.9 % (11.6-14.8); White Blood Cell Count 7.1 X10^3/uL (4.5-11.0)
[2022-09-13 08:46] LABS: Alanine Aminotransferase 21 IU/L (<35); Albumin 4.3 g/dL (3.5-5.0); Albumin Globulin Ratio 1.5 (1.0-2.8); Alkaline Phosphatase 92 U/L (38-126); Aspartate Aminotransferase 27 IU/L (14-36); Bilirubin Total 0.2 mg/dL (0.2-1.3); Blood Urea Nitrogen 15 mg/dL (7-17); Calcium 9.3 mg/dL (8.4-10.2); Carbon Dioxide 16 mmol/L (22-32); Chloride 109 mmol/L (98-107); Estimated Glomerular Filt Rate > 60 mL/min (>60); Globulin 2.8 g/dL (1.7-4.1); Glucose 87 mg/dL (70-100); HEMOLYSIS < 15 (0-50); Potassium 4.5 mmol/L (3.4-5.1); Sodium 139 mmol/L (137-145); Total Protein 7.1 g/dL (6.3-8.2)
[2022-09-13 09:14] LABS: Thyroid Stimulating Hormone 2.33 uIU/mL (0.47-4.68)
[2022-09-16 16:07] LABS: Lamotrigine Lamictal 2.8 ug/mL (2.0-20.0); Topiramate 4.5 ug/mL (2.0-25.0)
== END ==
PROVIDERS: PCP Family Medicine; Referring Provider Psychiatry & Neurology Neurology; Visit Provider Psychiatry & Neurology Neurology
DX: G40.309 Generalized idiopathic epilepsy and epileptic syndromes, not intractable, without status epilepticus (principal)
CPT/HCPCS: 36415; 80053; 80175; 80201; 84439; 84443; 85025

== ENCOUNTER → 2023-01-13 07:52 | Outpatient (CLI) | payer OTHER, MEDICAID, SELFPAY ==
[2023-01-13 08:52] LABS: Add Manual Diff / Slide Review NO; Basophils Absolute Auto 0 /uL (0-100); Basophils Percent Auto 0.3 % (0-2); Eosinophils Absolute Auto 100 /uL (0-450); Hematocrit 43.7 % (36-46); Hemoglobin 14.5 g/dL (12.0-16.0); Lymphocytes Absolute Auto 2500 /uL (1100-4500); Mean Corpuscular HGB Conc 33.3 % (30-36); Mean Corpuscular Hemoglobin 29.1 PG (26-34); Mean Corpuscular Volume 87.3 fL (80-100); Monocytes Absolute Auto 400 /uL (0-900); Monocytes Percent Auto 6.3 % (3-14); Neutrophils Absolute Auto 3900 /uL (1500-7000); Neutrophils Percent Auto 56.4 % (50-75); Platelet Count 284 X10^3/uL (150-400); Red Cell Distribution Width 13.6 % (11.6-14.8); White Blood Cell Count 6.8 X10^3/uL (4.5-11.0)
[2023-01-13 09:34] LABS: Alanine Aminotransferase 20 IU/L (<35); Albumin 4.3 g/dL (3.5-5.0); Albumin Globulin Ratio 1.5 (1.0-2.8); Alkaline Phosphatase 93 U/L (38-126); Aspartate Aminotransferase 28 IU/L (14-36); BUN Creatinine Ratio 18.9 (6-22); Bilirubin Total 0.4 mg/dL (0.2-1.3); Blood Urea Nitrogen 14 mg/dL (7-17); Calcium 9.6 mg/dL (8.4-10.2); Carbon Dioxide 20 mmol/L (22-32); Chloride 106 mmol/L (98-107); Estimated Glomerular Filt Rate > 60 mL/min (>60); Globulin 2.9 g/dL (1.7-4.1); Glucose 85 mg/dL (70-100); HEMOLYSIS < 15 (0-50); Potassium 4.2 mmol/L (3.4-5.1); Sodium 136 mmol/L (137-145); Total Protein 7.2 g/dL (6.3-8.2)
[2023-01-13 09:42] LABS: Free T4, Direct Thyroxine 0.95 ng/dL (0.78-2.19)
[2023-01-13 09:56] LABS: Thyroid Stimulating Hormone 2.28 uIU/mL (0.47-4.68)
[2023-01-13 10:16] LABS: Vitamin B12 889 pg/mL (239-931)
[2023-01-15 11:53] LABS: Lamotrigine Lamictal 3.2 ug/mL (2.0-20.0); Topiramate 5.9 ug/mL (2.0-25.0)
== END ==
PROVIDERS: PCP Family Medicine; Referring Provider Psychiatry & Neurology Neurology; Visit Provider Psychiatry & Neurology Neurology
DX: G40.909 Epilepsy, unspecified, not intractable, without status epilepticus (principal); Z79.899 Other long term (current) drug therapy
CPT/HCPCS: 36415; 80053; 80175; 80201; 82607; 84439; 84443; 85025

== ENCOUNTER → 2023-02-28 08:12 | Outpatient (CLI) | payer OTHER, MEDICAID, SELFPAY ==
--- NOTE | 2023-02-28 08:16 | DI.US.S_ITS ---
PROCEDURE: PERIP VENOUS LOW EXTREM LT INDICATIONS: LEFT LEG PAIN/VENOUS EMBOLISM TECHNIQUE: Real-time imaging, as well as color and pulse Doppler interrogation, were performed of the lower extremity deep veins from the inguinal ligament to the popliteal fossa, with documentation of the visualized calf veins. COMPARISON: Located within [facility], [facility] VENOUS LOW EXTREM LT, 09/24/2021, 19:20. FINDINGS: The common femoral, femoral, popliteal, and the visualized calf veins are normally compressible, and free of intraluminal thrombus. Color and pulse Doppler demonstrate normal phasic intraluminal flow. There is normal augmentation response to distal compression maneuver. Small nonocclusive thrombi in the mid greater saphenous vein. IMPRESSION: No left lower extremity DVT. Small thrombi in the left greater saphenous vein. Suspect chronic superficial venous thrombi which is decreased compared to 09/24/2021. Dictated by: Dangelo Minaya M.D. on 02/28/2023 at 12:18 Approved by: Dangelo Minaya M.D. on 02/28/2023 at 12:23
== END ==
PROVIDERS: PCP Family Medicine; Referring Provider Family Medicine; Visit Provider Family Medicine
DX: I82.812 Embolism and thrombosis of superficial veins of left lower extremity (principal); M79.605 Pain in left leg
CPT/HCPCS: 93971

== ENCOUNTER → 2023-03-21 06:51 | Outpatient (CLI) | payer OTHER, MEDICAID, SELFPAY ==
--- NOTE | 2023-03-21 | DI.US.S_ITS ---
PROCEDURE: US ABDOMEN LIMITED INDICATIONS: RIGHT LIVER HEMANGIOMA FOLLOW UP TECHNIQUE: Real-time focused scanning was performed of the abdomen, with image documentation. COMPARISON: [facility], US, US ABDOMEN COMPLETE, 11/10/2019, 8:40. [facility], US, US ABDOMEN COMPLETE, 07/24/2020, 7:33. [facility], US, US ABDOMEN COMPLETE, 10/01/2021, 7:26. FINDINGS: Echogenic mass again seen within the right lobe laterally not significant changed measuring 2.1 cm. Echogenic mass within the mid posterior right lobe measuring 1.0 cm. No gallstones identified. Normal gallbladder wall. No pericholecystic fluid. Negative sonographic Jackson sign. No biliary dilatation. IMPRESSION: Probable hemangiomas within the liver, largest measuring up to 2.1 cm which appears similar to prior examination. Dictated by: Robin BECK Interpreted: Vladimir Norton MD on 03/21/2023 at 8:43 Transcribed by: RAMIRO on 03/21/2023 at 8:46 Approved by: Vladimir Norton M.D. on 03/21/2023 at 13:49
== END ==
PROVIDERS: PCP Family Medicine; Referring Provider Family Medicine; Visit Provider Family Medicine
DX: D18.03 Hemangioma of intra-abdominal structures (principal)
CPT/HCPCS: 76705

== ENCOUNTER → 2023-07-09 08:16 | Outpatient (CLI) | payer OTHER, MEDICAID, SELFPAY ==
[2023-07-09 09:01] LABS: Add Manual Diff / Slide Review NO; Basophils Absolute Auto 0 /uL (0-100); Basophils Percent Auto 0.5 % (0-2); Eosinophils Absolute Auto 100 /uL (0-450); Hematocrit 41.8 % (36-46); Lymphocytes Absolute Auto 2300 /uL (1100-4500); Lymphocytes Percent Auto 23.2 % (25-40); Mean Corpuscular HGB Conc 33.5 % (30-36); Mean Corpuscular Volume 86.7 fL (80-100); Monocytes Absolute Auto 700 /uL (0-900); Monocytes Percent Auto 6.7 % (3-14); Neutrophils Absolute Auto 6800 /uL (1500-7000); Neutrophils Percent Auto 68.6 % (50-75); Platelet Count 228 X10^3/uL (150-400); Red Blood Cell Count 4.82 X10^6/uL (4.0-5.2); Red Cell Distribution Width 13.4 % (11.6-14.8); White Blood Cell Count 9.9 X10^3/uL (4.5-11.0)
[2023-07-09 09:23] LABS: Alanine Aminotransferase 18 IU/L (<35); Albumin 3.9 g/dL (3.5-5.0); Albumin Globulin Ratio 1.3 (1.0-2.8); Alkaline Phosphatase 83 U/L (38-126); Aspartate Aminotransferase 29 IU/L (14-36); BUN Creatinine Ratio 21.9 (6-22); Bilirubin Total 0.5 mg/dL (0.2-1.3); Blood Urea Nitrogen 16 mg/dL (7-17); Carbon Dioxide 18 mmol/L (22-32); Chloride 111 mmol/L (98-107); Estimated Glomerular Filt Rate > 60 mL/min (>60); Globulin 3.1 g/dL (1.7-4.1); Glucose 75 mg/dL (70-100); HEMOLYSIS < 15 (0-50); Potassium 4.3 mmol/L (3.4-5.1); Sodium 139 mmol/L (137-145)
[2023-07-11 05:21] LABS: Valproic Acid (Depakene) Total 78 ug/mL (50-100)
== END ==
PROVIDERS: PCP Family Medicine; Referring Provider Psychiatry & Neurology Neurology; Visit Provider Psychiatry & Neurology Neurology
DX: G40.309 Generalized idiopathic epilepsy and epileptic syndromes, not intractable, without status epilepticus (principal)
CPT/HCPCS: 36415; 80053; 80164; 80201; 85025

== ENCOUNTER → 2024-03-26 07:15 | Outpatient (CLI) | payer OTHER, MEDICAID, SELFPAY ==
[2024-03-26 07:58] LABS: Add Manual Diff / Slide Review NO; Basophils Absolute Auto 0 /uL (0-100); Basophils Percent Auto 0.3 % (0-2); Eosinophils Absolute Auto 100 /uL (0-450); Hematocrit 42.4 % (36-46); Hemoglobin 14.2 g/dL (12.0-16.0); Lymphocytes Absolute Auto 2300 /uL (1100-4500); Lymphocytes Percent Auto 33.6 % (25-40); Mean Corpuscular HGB Conc 33.4 % (30-36); Mean Corpuscular Hemoglobin 30.4 PG (26-34); Monocytes Absolute Auto 500 /uL (0-900); Monocytes Percent Auto 6.7 % (3-14); Neutrophils Absolute Auto 4100 /uL (1500-7000); Neutrophils Percent Auto 58.4 % (50-75); Platelet Count 217 X10^3/uL (150-400); Red Blood Cell Count 4.66 X10^6/uL (4.0-5.2); Red Cell Distribution Width 13.5 % (11.6-14.8)
[2024-03-26 08:34] LABS: Vitamin D 25 Hydroxy (D3) 50.8 ng/mL (30.0-100.0)
== END ==
PROVIDERS: PCP Family Medicine; Referring Provider Psychiatry & Neurology Neurology; Visit Provider Psychiatry & Neurology Neurology
DX: G40.309 Generalized idiopathic epilepsy and epileptic syndromes, not intractable, without status epilepticus (principal)
CPT/HCPCS: 36415; 80164; 80201; 82306; 85025

== ENCOUNTER → 2024-04-16 07:23 | Outpatient (CLI) | payer OTHER, SELFPAY ==
--- NOTE | 2024-04-16 07:26 | DI.RAD.S_ITS ---
PROCEDURE: XR T AND L SPINE 4 TO 5 VIEWS INDICATIONS: SCHLOSIS TECHNIQUE: 6 views acquired of the thoracolumbar spine. COMPARISON: None. FINDINGS: Bones: There is levo scoliotic curvature of the lumbar spine with Monsivais angle measuring approximately 31.5 degrees measured at the inferior endplate of L4 and superior endplate of T11. No acute fractures or dislocations. Visualized inferior ribs appear intact. No suspicious bony lesions. Soft tissues: No suspicious soft tissue calcifications. IMPRESSION: Levo scoliotic curvature of the lumbar spine with Monsivais angle measuring approximately 31.5 degrees. Dictated by: Francisco Vadlovinos M.D. on 04/16/2024 at 9:58 Approved by: Francisco Valdovinos M.D. on 04/16/2024 at 9:59
== END ==
PROVIDERS: PCP Family Medicine; Referring Provider Family Medicine; Visit Provider Family Medicine
DX: M41.9 Scoliosis, unspecified (principal)
CPT/HCPCS: 72083